=== PATIENT | female | born 1995 | race Caucasian/White ===

== ENCOUNTER 2017-12-13 20:05 | Emergency (ER) | payer OTHER ==
[2017-12-13 20:09] VITALS: BP 114/74
== END 2017-12-13 20:20 | disposition left against medical advice (07) ==
LOC: ED 20:05
DX: Z53.21 Procedure and treatment not carried out due to patient leaving prior to being seen by health care provider (principal)

== ENCOUNTER 2018-01-07 11:51 | Emergency (ER) | payer OTHER ==
[~2018-01-07] VITALS: Ht 162.6 cm; Wt 70.8 kg
[2018-01-07 14:15] VITALS: BP 120/63
== END 2018-01-07 15:19 | disposition home or self-care (01) ==
LOC: ED 11:51
DX: S39.012A Strain of muscle, fascia and tendon of lower back, initial encounter (principal); X58.XXXA Exposure to other specified factors, initial encounter; Y93.89 Activity, other specified; Y92.89 Other specified places as the place of occurrence of the external cause; Y99.8 Other external cause status
CPT/HCPCS: J1885; Q0092

== ENCOUNTER 2018-03-11 19:39 | Emergency (ER) | payer OTHER ==
[2018-03-11 22:53] VITALS: BP 121/67
== END 2018-03-11 20:46 | disposition left against medical advice (07) ==
LOC: ED 19:39
DX: Z53.21 Procedure and treatment not carried out due to patient leaving prior to being seen by health care provider (principal)

== ENCOUNTER 2019-10-08 16:58 | Emergency (ER) | payer BC ==
[~2019-10-08] VITALS: Ht 167.6 cm; Wt 61.0 kg
[2019-10-08 17:04] VITALS: BP 103/61; Ht 167.6 cm; Wt 61.0 kg
== END 2019-10-08 17:27 | disposition home or self-care (01) ==
LOC: ED 16:58
DX: N39.0 Urinary tract infection, site not specified (principal); J45.909 Unspecified asthma, uncomplicated; F32.9 Major depressive disorder, single episode, unspecified

== ENCOUNTER 2020-03-01 01:47 | Emergency (ER) | payer MEDICAID ==
[~2020-03-01] VITALS: Ht 167.6 cm; Wt 59.0 kg
[2020-03-01 01:53] VITALS: BP 120/85; Ht 167.6 cm; Wt 59.0 kg
== END 2020-03-01 03:03 | disposition home or self-care (01) ==
LOC: ED 01:47
DX: S96.911A Strain of unspecified muscle and tendon at ankle and foot level, right foot, initial encounter (principal); S86.911A Strain of unspecified muscle(s) and tendon(s) at lower leg level, right leg, initial encounter; W01.0XXA Fall on same level from slipping, tripping and stumbling without subsequent striking against object, initial encounter; Y93.89 Activity, other specified; Y92.89 Other specified places as the place of occurrence of the external cause; Y99.8 Other external cause status
CPT/HCPCS: J1885; Q0092

== ENCOUNTER 2020-03-10 13:34 | Emergency (ER) | payer MEDICAID ==
[~2020-03-10] VITALS: Ht 167.6 cm; Wt 59.9 kg
[2020-03-10 13:38] VITALS: Ht 167.6 cm; Wt 59.9 kg
[2020-03-10 15:45] VITALS: BP 117/64
== END 2020-03-10 15:45 | disposition home or self-care (01) ==
LOC: ED 13:34
DX: R30.0 Dysuria (principal); J45.909 Unspecified asthma, uncomplicated; Z11.3 Encounter for screening for infections with a predominantly sexual mode of transmission
CPT/HCPCS: 87491; 87591; J0696

== ENCOUNTER 2020-04-07 20:14 | Emergency (ER) | payer MEDICAID, SELFPAY ==
[~2020-04-07] VITALS: Ht 167.6 cm; Wt 59.0 kg
[2020-04-07 20:21] VITALS: Ht 167.6 cm; Wt 59.0 kg
[2020-04-07 21:10] LABS: BASOPHIL % 0.7 % (0-2); PLATELET COUNT 225 x10^3mcL (130-400); RED CELL DISTRIBUTION WIDTH 13.9 % (11.5-14.5)
[2020-04-07 21:21] LABS: CALCIUM 8.5 mg/dL (8.5-10.1); CARBON DIOXIDE 27.3 mmol/L (21-32); CHLORIDE SERUM 109 mmol/L (98-107); CREATININE SERUM 0.7 mg/dL (0.6-1.0); GFR1 > 60 mL/min; GLUCOSE SERUM 83 mg/dL (74-106); POTASSIUM SERUM 3.5 mmol/L (3.5-5.1); SODIUM SERUM 146 mmol/L (136-145)
[2020-04-07 21:23] LABS: ALBUMIN 3.8 g/dL (3.4-5.0); ALKALINE PHOSPHATASE 63 U/L (46-116); ALT/SGPT 15 U/L (14-59); AST/SGOT 9 U/L (15-37); BILIRUBIN TOTAL 0.9 mg/dL (0.20-1.00); LIPASE 126 IU/L (73-393); TOTAL PROTEIN, SERUM 7.5 g/dL (6.4-8.2)
[2020-04-07 22:04] VITALS: BP 106/61
== END 2020-04-07 22:04 | disposition left against medical advice (07) ==
LOC: ED 20:14
PROVIDERS: Emergency Medicine
DX: M54.5 Low back pain (principal); R50.9 Fever, unspecified; R05 Cough; R19.7 Diarrhea, unspecified; J45.909 Unspecified asthma, uncomplicated
CPT/HCPCS: J1885; J2405; Q0092

== ENCOUNTER 2020-04-10 02:06 | Emergency (ER) | payer MEDICAID ==
[~2020-04-10] VITALS: Ht 167.6 cm; Wt 54.4 kg
[2020-04-10 02:13] VITALS: Ht 167.6 cm; Wt 54.4 kg
[2020-04-10 04:22] LABS: BASOPHIL % 0.5 % (0-2); PLATELET COUNT 236 x10^3mcL (130-400); RED CELL DISTRIBUTION WIDTH 14.2 % (11.5-14.5)
[2020-04-10 04:27] LABS: CALCIUM 8.4 mg/dL (8.5-10.1); CARBON DIOXIDE 24.5 mmol/L (21-32); CHLORIDE SERUM 104 mmol/L (98-107); CREATININE SERUM 0.6 mg/dL (0.6-1.0); GFR1 > 60 mL/min; GLUCOSE SERUM 95 mg/dL (74-106); POTASSIUM SERUM 3.5 mmol/L (3.5-5.1); SODIUM SERUM 141 mmol/L (136-145)
[2020-04-10 04:29] LABS: ALBUMIN 3.5 g/dL (3.4-5.0); ALKALINE PHOSPHATASE 57 U/L (46-116); ALT/SGPT 20 U/L (14-59); AST/SGOT 15 U/L (15-37); BILIRUBIN TOTAL 0.77 mg/dL (0.20-1.00); TOTAL PROTEIN, SERUM 7.4 g/dL (6.4-8.2)
[2020-04-10 05:30] LABS: AMPHETAMINE QUAL UR NONE DETECTED (See below)
[2020-04-10 19:27] VITALS: BP 99/59
== END 2020-04-10 19:27 | disposition short-term general hospital (02) ==
LOC: ED 02:06
PROVIDERS: Emergency Medicine
DX: T71.9XXA Asphyxiation due to unspecified cause, initial encounter (principal); F31.9 Bipolar disorder, unspecified; S10.91XA Abrasion of unspecified part of neck, initial encounter; J45.909 Unspecified asthma, uncomplicated; Y08.89XA Assault by other specified means, initial encounter; Y93.89 Activity, other specified; Y92.89 Other specified places as the place of occurrence of the external cause; Y99.8 Other external cause status
CPT/HCPCS: 36415; G0480

== ENCOUNTER 2020-09-16 00:11 | Emergency (ER) | payer OTHER, SELFPAY ==
[~2020-09-16] VITALS: Ht 167.6 cm; Wt 59.0 kg
[2020-09-16 00:13] VITALS: BP 121/87; Ht 167.6 cm; Wt 59.0 kg
== END 2020-09-16 00:46 | disposition home or self-care (01) ==
LOC: ED 00:11
DX: J02.9 Acute pharyngitis, unspecified (principal); F15.10 Other stimulant abuse, uncomplicated; J45.909 Unspecified asthma, uncomplicated; F31.9 Bipolar disorder, unspecified; Z20.828 Contact with and (suspected) exposure to other viral communicable diseases
CPT/HCPCS: Q0162; U0003

== ENCOUNTER 2020-09-28 19:02 | Emergency (ER) | payer OTHER ==
[~2020-09-28] VITALS: Ht 167.6 cm; Wt 65.8 kg
[2020-09-28 19:18] VITALS: Ht 167.6 cm; Wt 65.8 kg
[2020-09-28 20:49] VITALS: BP 116/81
[2020-09-28 20:53] LABS: BASOPHIL % 0.4 % (0-2); PLATELET COUNT 260 x10^3mcL (130-400); RED CELL DISTRIBUTION WIDTH 14.1 % (11.5-14.5)
[2020-09-28 21:13] LABS: CALCIUM 9.2 mg/dL (8.5-10.1); CARBON DIOXIDE 26.3 mmol/L (21-32); CHLORIDE SERUM 104 mmol/L (98-107); CREATININE SERUM 0.5 mg/dL (0.6-1.0); GFR1 > 60 mL/min; GLUCOSE SERUM 88 mg/dL (74-106); POTASSIUM SERUM 3.9 mmol/L (3.5-5.1); SODIUM SERUM 142 mmol/L (136-145)
[2020-09-28 21:17] LABS: ALBUMIN 3.9 g/dL (3.4-5.0); ALKALINE PHOSPHATASE 60 U/L (46-116); ALT/SGPT 17 U/L (14-59); AST/SGOT 10 U/L (15-37); BILIRUBIN TOTAL 0.95 mg/dL (0.20-1.00); TOTAL PROTEIN, SERUM 8.1 g/dL (6.4-8.2)
== END 2020-09-28 20:14 | disposition home or self-care (01) ==
LOC: ED 19:02
PROVIDERS: Emergency Medicine
DX: O23.41 Unspecified infection of urinary tract in pregnancy, first trimester (principal); O99.511 Diseases of the respiratory system complicating pregnancy, first trimester; Z3A.00 Weeks of gestation of pregnancy not specified

== ENCOUNTER 2020-10-05 09:34 | Emergency (ER) | payer OTHER ==
[~2020-10-05] VITALS: Ht 167.6 cm; Wt 60.3 kg
[2020-10-05 09:49] VITALS: Ht 167.6 cm; Wt 60.3 kg
[2020-10-05 11:06] LABS: CALCIUM 8.6 mg/dL (8.5-10.1); CARBON DIOXIDE 26.9 mmol/L (21-32); CHLORIDE SERUM 103 mmol/L (98-107); CREATININE SERUM 0.6 mg/dL (0.6-1.0); GFR1 > 60 mL/min; GLUCOSE SERUM 86 mg/dL (74-106); POTASSIUM SERUM 3.7 mmol/L (3.5-5.1); SODIUM SERUM 137 mmol/L (136-145)
[2020-10-05 11:08] LABS: BASOPHIL % 0.5 % (0-2); PLATELET COUNT 279 x10^3mcL (130-400)
[2020-10-05 11:10] LABS: ALBUMIN 3.9 g/dL (3.4-5.0); ALKALINE PHOSPHATASE 57 U/L (46-116); ALT/SGPT 20 U/L (14-59); AST/SGOT 14 U/L (15-37); LIPASE 60 IU/L (73-393); TOTAL PROTEIN, SERUM 7.7 g/dL (6.4-8.2)
[2020-10-05 12:44] VITALS: BP 124/76
== END 2020-10-05 12:45 | disposition home or self-care (01) ==
LOC: ED 09:34
PROVIDERS: Emergency Medicine
DX: O26.891 Other specified pregnancy related conditions, first trimester (principal); O99.511 Diseases of the respiratory system complicating pregnancy, first trimester; R11.0 Nausea; R10.811 Right upper quadrant abdominal tenderness; R10.812 Left upper quadrant abdominal tenderness; Z3A.01 Less than 8 weeks gestation of pregnancy
CPT/HCPCS: J2270

== ENCOUNTER 2020-10-16 17:40 | Emergency (ER) | payer OTHER | END 2020-10-16 18:30 | disposition other institution (70) | LOC: ED 17:40 | DX: Z02.89 Encounter for other administrative examinations (principal) ==

== ENCOUNTER 2020-10-16 17:40 | Emergency (ER) | payer OTHER ==
[~2020-10-16] VITALS: Ht 167.6 cm; Wt 63.5 kg
[2020-10-16 17:41] VITALS: Ht 167.6 cm; Wt 63.5 kg
[2020-10-16 18:30] VITALS: BP 110/62
== END 2020-10-16 18:30 | disposition other institution (70) ==
LOC: ED 17:40
DX: O26.891 Other specified pregnancy related conditions, first trimester (principal); J45.909 Unspecified asthma, uncomplicated; F32.9 Major depressive disorder, single episode, unspecified; F15.10 Other stimulant abuse, uncomplicated; F17.210 Nicotine dependence, cigarettes, uncomplicated; Z3A.01 Less than 8 weeks gestation of pregnancy
CPT/HCPCS: 99406

== ENCOUNTER 2020-12-10 16:41 | Emergency (ER) | payer OTHER ==
[~2020-12-10] VITALS: Ht 167.6 cm; Wt 62.1 kg
[2020-12-10 17:20] VITALS: Ht 167.6 cm; Wt 62.1 kg
[2020-12-10 18:44] VITALS: BP 108/71
== END 2020-12-10 18:44 | disposition home or self-care (01) ==
LOC: ED 16:41
DX: O26.891 Other specified pregnancy related conditions, first trimester (principal); O99.511 Diseases of the respiratory system complicating pregnancy, first trimester; F15.10 Other stimulant abuse, uncomplicated; Z3A.00 Weeks of gestation of pregnancy not specified; Z02.79 Encounter for issue of other medical certificate
CPT/HCPCS: 87491; 87591

== ENCOUNTER 2021-01-09 06:24 | Emergency (ER) | payer OTHER ==
[~2021-01-09] VITALS: Ht 167.6 cm; Wt 63.2 kg
[2021-01-09 06:33] VITALS: Ht 167.6 cm; Wt 63.2 kg
[2021-01-09 08:16] LABS: microscopic required? YES; urine erythrocyte 2+ (NEGATIVE)
[2021-01-09 08:51] LABS: AMPHETAMINE QUAL UR POSITIVE (See below)
[2021-01-09 08:53] LABS: ALKALINE PHOSPHATASE 50 U/L (46-116); ALT/SGPT 23 U/L (14-59); AST/SGOT 16 U/L (15-37); BILIRUBIN TOTAL 0.8 mg/dL (0.20-1.00); CALCIUM 8.3 mg/dL (8.5-10.1); CARBON DIOXIDE 21.6 mmol/L (21-32); CHLORIDE SERUM 99 mmol/L (98-107); CREATININE SERUM 0.4 mg/dL (0.6-1.0); GFR1 > 60 mL/min; GLUCOSE SERUM 84 mg/dL (74-106); LIPASE 64 IU/L (73-393); SODIUM SERUM 133 mmol/L (136-145); TOTAL PROTEIN, SERUM 6.9 g/dL (6.4-8.2)
[2021-01-09 09:00] LABS: ALBUMIN 3.3 g/dL (3.4-5.0)
[2021-01-09 09:02] LABS: POTASSIUM SERUM 2.9 mmol/L (3.5-5.1)
[2021-01-09 10:00] LABS: BASOPHIL % 0.5 % (0.2-1.3); PLATELET COUNT 192 x10^3mcL (179-408); RED CELL DISTRIBUTION WIDTH 13.7 % (12.3-17.7)
[2021-01-09 10:15] VITALS: BP 110/68
== END 2021-01-09 10:15 | disposition home or self-care (01) ==
LOC: ED 06:24
PROVIDERS: Emergency Medicine
DX: O26.891 Other specified pregnancy related conditions, first trimester (principal); R50.9 Fever, unspecified